=== PATIENT | male | born 1945 | race Caucasian/White ===

== ENCOUNTER 2022-05-18 13:44 | Inpatient (IN) | payer MEDICARE, BC ==
[2022-05-18 15:43] LABS: #Eosinphils 0.1 thou/uL (0.0-0.7); #Lymphocytes 1.2 thou/uL (1.20-3.40); #Monocytes 0.3 thou/uL (0.11-0.59); %Basophils 0.4 % (0.0-1.0); %Eosinophils 1.8 % (0.0-10.0); %Lymphocytes 26.3 % (21.0-51.0); %Neutrophils 64.5 % (42.0-75.0); Hemoglobin 12.3 g/dL (14.0-18.0); Mean Corpuscular HGB CONC 33.1 g/dL (32.0-36.0); Mean Corpuscular Hemoglobin 29.7 pg (27.0-31.0); Mean Corpuscular Volume 89.8 fL (78.0-98.0); Mean Platelet Volume 8.5 fL (7.4-10.4); Platelet Count 156 thou/uL (130-400); Red Blood Cell (RBC) Count 4.14 mill/uL (4.70-6.10); White Blood Cell (WBC) Count 4.7 thou/uL (4.8-10.8)
[2022-05-18 16:13] LABS: ALT (SGPT) 13 U/L (8-55); AST (SGOT) 20 U/L (5-34); Albumin 3.8 g/dL (3.4-4.8); Alkaline Phosphatase 114 U/L (40-110); Anion Gap 14 mmol/L (10-20); BUN (Urea Nitrogen) 10 mg/dL (8.4-25.7); Bilirubin, Total 0.9 mg/dL (0.2-1.2); Calc. Creatinine Clearance 0 mL/min (70-130); Calcium 8.9 mg/dL (7.8-10.44); Carbon Dioxide 28 mmol/L (23-31); Chloride 100 mmol/L (98-107); Estimated GFR 90; Globulin 2.5 g/dL (2.4-3.5); Glucose 80 mg/dL (83-110); Potassium 4.2 mmol/L (3.5-5.1); Protein, Total 6.3 g/dL (5.8-8.1); Sodium 138 mmol/L (136-145)
[2022-05-18] MEDS ORDERED: Enoxaparin Sodium 80 MG/0.8 ML SYRINGE ONE (16:27)
[2022-05-18 16:45] LABS: CKMB 3.1 ng/mL (0-6.6)
[2022-05-18] MEDS ORDERED: Acetaminophen 325 MG TAB PO PRN (17:01)
[2022-05-18] MEDS ORDERED: Communication Order-Pharmacy FS ONE (17:01)
[2022-05-18] MEDS ORDERED: hydrALAZINE 20 MG/ML VIAL SLOW IVP PRN (17:01)
[2022-05-18 17:43] VITALS: BMI 20.6
[2022-05-18 17:55] LABS: Hemoglobin 12.4 g/dL (14.0-18.0); Platelet Count 168 thou/uL (130-400)
[2022-05-18] MEDS ORDERED: Nicotine 14 MG PATCH TD PRN (18:30)
[2022-05-18] MEDS: Enoxaparin Sodium 80 MG/0.8 ML SYRINGE SC SCH (20:26)
[2022-05-19 04:34] LABS: #Eosinphils 0.2 thou/uL (0.0-0.7); #Lymphocytes 1.7 thou/uL (1.20-3.40); #Monocytes 0.4 thou/uL (0.11-0.59); #Neutrophils 2.4 thou/uL (1.40-6.50); %Basophils 0.8 % (0.0-1.0); %Eosinophils 3.9 % (0.0-10.0); %Lymphocytes 35.3 % (21.0-51.0); %Monocytes 7.7 % (0.0-10.0); %Neutrophils 52.3 % (42.0-75.0); Hemoglobin 11.9 g/dL (14.0-18.0); Mean Corpuscular Hemoglobin 30.8 pg (27.0-31.0); Mean Corpuscular Volume 90.6 fL (78.0-98.0); Mean Platelet Volume 8.6 fL (7.4-10.4); Platelet Count 156 thou/uL (130-400); RBC Distribution Width 13.8 % (11.5-14.5); Red Blood Cell (RBC) Count 3.88 mill/uL (4.70-6.10); White Blood Cell (WBC) Count 4.7 thou/uL (4.8-10.8)
[2022-05-19 04:56] LABS: Anion Gap 14 mmol/L (10-20); BUN (Urea Nitrogen) 12 mg/dL (8.4-25.7); Calc. Creatinine Clearance 78 mL/min (70-130); Calcium 8.9 mg/dL (7.8-10.44); Carbon Dioxide 25 mmol/L (23-31); Chloride 103 mmol/L (98-107); Estimated GFR 91; Glucose 93 mg/dL (83-110); Potassium 3.8 mmol/L (3.5-5.1); Sodium 138 mmol/L (136-145)
[2022-05-19] MEDS: Enoxaparin Sodium 80 MG/0.8 ML SYRINGE SC SCH ×2 (09:00→21:41)
[2022-05-19] MEDS ORDERED: Acetaminophen/Codeine 30-300mg Tablet PO PRN (16:42)
[2022-05-19] MEDS ORDERED: Tamsulosin HCl 0.4 MG CAP PO SCH (21:00)
[2022-05-19] MEDS ORDERED: Atorvastatin Calcium 10 MG TAB PO SCH (21:00)
[2022-05-19] MEDS: Famotidine 20 MG TAB PO SCH (21:42)
[2022-05-20] MEDS ORDERED: DULoxetine 60 MG CAP PO SCH (09:00)
[2022-05-20] MEDS ORDERED: Finasteride 5 MG TAB PO SCH (09:00)
[2022-05-20] MEDS: Enoxaparin Sodium 80 MG/0.8 ML SYRINGE SC SCH (09:50)
[2022-05-20] MEDS: Famotidine 20 MG TAB PO SCH (09:51)
[2022-05-20 12:09] VITALS: BP 119/73; TEMP 98.2
== END 2022-05-20 13:10 | disposition home or self-care (01) | DRG 300 ==
LOC: ERS 13:44 → 2NO 17:29
PROVIDERS: ADMIT Internal Medicine; ATTEND Internal Medicine
DX: I82.C12 Acute embolism and thrombosis of left internal jugular vein (principal); I42.2 Other hypertrophic cardiomyopathy; M70.22 Olecranon bursitis, left elbow; I25.10 Atherosclerotic heart disease of native coronary artery without angina pectoris; I50.9 Heart failure, unspecified; J44.9 Chronic obstructive pulmonary disease, unspecified; K21.9 Gastro-esophageal reflux disease without esophagitis; K57.90 Diverticulosis of intestine, part unspecified, without perforation or abscess without bleeding; F32.A Depression, unspecified; N40.0 Benign prostatic hyperplasia without lower urinary tract symptoms; I48.91 Unspecified atrial fibrillation; E78.5 Hyperlipidemia, unspecified; T45.515A Adverse effect of anticoagulants, initial encounter; D64.9 Anemia, unspecified; Z20.822 Contact with and (suspected) exposure to COVID-19; Z95.3 Presence of xenogenic heart valve; Z90.89 Acquired absence of other organs; Z98.890 Other specified postprocedural states; Z79.01 Long term (current) use of anticoagulants; Z88.8 Allergy status to other drugs, medicaments and biological substances; Z80.1 Family history of malignant neoplasm of trachea, bronchus and lung; Z80.8 Family history of malignant neoplasm of other organs or systems; Z95.810 Presence of automatic (implantable) cardiac defibrillator; Z79.899 Other long term (current) drug therapy; Z85.21 Personal history of malignant neoplasm of larynx; Z98.1 Arthrodesis status; Z87.891 Personal history of nicotine dependence; Z92.3 Personal history of irradiation
CPT/HCPCS: 36415; 71045; 80048; 80053; 82550; 82553; 83880; 84484; 85025; 96372; J1650; U0003; U0005

== ENCOUNTER 2023-04-19 11:40 | Emergency (ER) | payer BC, MEDICARE ==
[2023-04-19 12:18] LABS: #Eosinphils 0.1 thou/uL (0.0-0.7); #Monocytes 0.3 thou/uL (0.11-0.59); %Basophils 0.6 % (0.0-1.0); %Eosinophils 1.3 % (0.0-10.0); %Monocytes 6.7 % (0.0-10.0); %Neutrophils 65.2 % (42.0-75.0); Hemoglobin 13.5 g/dL (14.0-18.0); Mean Corpuscular HGB CONC 33.4 g/dL (32.0-36.0); Mean Corpuscular Hemoglobin 30.6 pg (27.0-31.0); Mean Corpuscular Volume 91.6 fl (78.0-98.0); Platelet Count 170 10x3/uL (130-400); RBC Distribution Width 13.8 % (11.5-14.5); Red Blood Cell (RBC) Count 4.41 mill/uL (4.70-6.10); White Blood Cell (WBC) Count 4.6 10x3/uL (4.8-10.8)
[2023-04-19 12:35] LABS: INR-International Normal Ratio 1.4; PTT 33.5 sec (22.9-36.1); Prothrombin Time 17.2 sec (12.0-14.7)
[2023-04-19 12:47] LABS: ALT (SGPT) 8 U/L (8-55); AST (SGOT) 16 U/L (5-34); Albumin 3.9 g/dL (3.4-4.8); Alkaline Phosphatase 98 U/L (40-110); Anion Gap 13 mmol/L (10-20); BUN (Urea Nitrogen) 7 mg/dL (8.4-25.7); Bilirubin, Total 0.7 mg/dL (0.2-1.2); CK (CPK) 45 U/L (30-200); Calc. Creatinine Clearance 0 mL/min (70-130); Calcium 8.9 mg/dL (7.8-10.44); Carbon Dioxide 27 mmol/L (23-31); Chloride 102 mmol/L (98-107); Estimated GFR 87; Globulin 2.3 g/dL (2.4-3.5); Glucose 123 mg/dL (83-110); Magnesium 1.9 mg/dL (1.6-2.6); Potassium 4.1 mmol/L (3.5-5.1); Protein, Total 6.2 g/dL (5.8-8.1); Sodium 138 mmol/L (136-145)
[2023-04-19 13:06] LABS: CKMB 2.9 ng/mL (0-6.6)
== END 2023-04-19 14:45 | disposition home or self-care (01) ==
LOC: ERS 11:40
DX: R55 Syncope and collapse (principal); K21.9 Gastro-esophageal reflux disease without esophagitis; F17.210 Nicotine dependence, cigarettes, uncomplicated
CPT/HCPCS: 36415; 71045; 80053; 82550; 82553; 83605; 83735; 84443; 84484; 85025; 85610; 85730; 93005; 96360; 96361